=== PATIENT | male | born 1980 | race Hispanic/Latino ===

== ENCOUNTER 2018-09-29 14:01 | Outpatient (CLI) | payer BC ==
--- NOTE | 2018-09-29 15:00 | MRI ---
EXAM: MRI right knee PROVIDED CLINICAL HISTORY: Right knee pain COMPARISON: None FINDINGS: The anterior cruciate ligament, posterior cruciate ligament, medial collateral ligament and lateral c ollateral ligamentous complex demonstrate an intact MR appearance, as does the extensor mechanism. The medial and lateral menisci demonstrate no definite evidence for tear. Nonspecific signal alterati on involving the anterior horn of the lateral meniscus as it approaches the anterior root. No focal articular cartilage defect is apparent. There is signal inhomogeneity involving the patellar articular cartilage. There is a small knee joint effusion. No focal concerning regional marrow or muscular signal abnormal ity apparent. IMPRESSION: 1. Mild patellar chondrosis. 2. Small knee joint effusion.
== END 2018-09-29 14:02 | disposition home or self-care (01) ==
LOC: BICMRI 14:01
PROVIDERS: ATTEND Orthopaedic Surgery
DX: M25.561 Pain in right knee (principal); M25.461 Effusion, right knee; M22.2X1 Patellofemoral disorders, right knee